=== PATIENT | female | born 1960 | race Caucasian/White ===

== ENCOUNTER 2016-06-29 10:45 | Day surgery (SDC) | payer OTHER ==
[~2016-06-29] VITALS: Ht 177.8 cm; Wt 103.0 kg
[~2016-06-29 10:45] MED LIST: ACET-97 PO; CETI10CA PO; CITA40TA13 PO; FENO160T14 PO; IBUP-1827 PO; LEVO75TA4 PO; Lactated Ringer's 1,000 ML IV ONE; OMEP40CA36 PO
[2016-06-29] MEDS ORDERED: Propofol 10,000 mCg/mL 20 mL Inj ONE (10:46)
[2016-06-29] MEDS ORDERED: fentaNYL-PF 50 mCg/mL 2 mL Inj ONE (10:46)
[2016-06-29 12:23] VITALS: BP 100/57; PULSE 69; O2SAT 100
--- NOTE | 2016-06-29 12:38 | PCM.HPANE ---
Patient Data Surgeon Admitting Provider: Attending Provider:Luiz Griffin MD Primary Care Physician:Leana Pollard DO Other Provider:Rickey Yousif Anesthesia Reason for Visit Dysphagia Ht/WT & BMI Body Mass Index Allergies Coded Allergies: morphine (Verified Adverse Reaction, Severe, NAUSEA,DIZZINESS,CONFUSION, ) Past Anesthesia History Anesthesia History: Denies:: Abnormal Airway, Anesthesia Reactions, Difficult Intubation, Fam Anesthesia Reaction, Fam Malignant Hypertherm, Malignant Hyperthermia Diabetes History Hx Diabetes?: No MRSA MRSA: No Medications Reported Medications Omeprazole 40 Mg Capsule.dr40 Mg PO BID 30 Days Ref 0 10/01/14 Levothyroxine 75 Mcg Ihwwvg22 Mcg PO DAILY 30 Days Ref 0 10/01/14 Ibuprofen 600 Mg [id number] Mg PO QID PRN For Pain Ref 0 10/01/14 Cetirizine HCl (Zyrtec)10 Mg Kvypojb55 Mg PO HS #30 CAPSULE Ref 0 10/01/14 Fenofibrate 160 Mg [id number] Mg PO DAILY 30 Days Ref 0 10/01/14 Discontinued Reported Medications Citalopram 40 Mg Lkbbrm50 Mg PO DAILY 30 Days Ref 0 10/01/14 Acetaminophen 500 Mg [id number] Mg PO PRN PRN For Pain 10/01/14 History History of ENT Problems?: Yes HEENT History: Positive for:: Sinus Problem (ENVIRONMENTAL ALLERGIES) Denies:: Abnormal Airway Difficult Intubation Dysphagia Hearing Problem Hx of Heart Problems?: No Cardiovascular History: Denies:: AICD Atrial Fibrillation Chest Pain Hypertension Pacemaker Valvular Heart Disease Hx of Respiratory Problem?: No Respiratory History: Positive for:: Use of C-PAP Machine (DAGO+ ??CPAP) Denies:: Asthma COPD Cough Hemoptysis Pneumonia Tuberculosis Hx Neurologic Problems?: Yes Neurological History: Positive for:: Headaches Denies:: CVA Hx of GI Problems?: Yes Gastrointestinal History: Positive for:: Gastroesphageal Reflux (takes omeprazole daily (40mg)) Denies:: Cirrhosis Diverticulitis Hiatal Hernia Rectal Bleeding Hx of Problems?: No Female Hx: Denies:: Currently Skin History: Denies:: History Skin Disorders? Pressure Ulcers Hx Musculoskeletal Problems?: Yes Musculoskeletal History: Positive for:: Musculoskeletal Trauma (S/P LT SHOULDER LABRUM RPR) Denies:: Joint Replacement Hx of Psycho/Social Problems?: Yes Psycho Social History: Positive for:: Anxiety Hx Depression Hx Surgeries?: Yes (hyst 07; l shoulder 09; cervix 09; neck 04/13. ) Hx Any Other Health Problems?: Yes Other History: Positive for:: Thyroid Disease Denies:: Cancer Endocrine Disease Hospitalization History Blood Transfusions: Denies:: Blood Transfusions Hx Diabetes: No Hx Alcohol Use: NoHx Substance Use: No Smoking Status: Never Smoker Have You Smoked inLast 12 mo: No Stop/Bang Risk Assessment Category Category 1A: Patient has history of documented sleep apnea, and HAS NOT received any narcotic, sedative or anesthesia administration during this stay. Category 1B: Patient has history of documented sleep apnea, and HAS received any narcotic , sedative or anesthesia administration during this stay Category 2: Patient has SUSPECTED Obstructive Sleep Apnea, and HAS received any narcotic , sedative or anesthesia administration during this stay. Category 3: Patient has SUSPECTED Obstructive Sleep Apnea and HAS NOT received narcotic, sedative or anesthesia administration during this stay. Category 4: Outpatient in Procedural Areas with known sleep apnea or who screen positive for High Risk via the STOP/BANG questionnaire. Exam Exam General Appearance: Alert, Oriented X3, Cooperative, No Acute Distress HEENT/AIRWAY: MP 2 Lungs: Clear to Auscultation Heart: Exam Unremarkable Plan Impression Patient chart reviewed, patient interviewed and anesthestic plan with risks, benefits, and alternatives discussed, and informed consent obtained. NPO Status: 730pm ASA Physical Status: ASA2 Mod Systemic Disease Anesthetic Plan: MAC Bene/Risks/Altern/Consents: Yes HP Complete Prior to Induction: Yes Otilio Arce MD Jun 29, 2016 08:12
--- NOTE | 2016-06-29 12:54 | PCM.ANEP2 ---
Post Anesthesia Evaluation ASA/CMS Post Anesthesia VS in Patient's Normal Range?: Yes Resp Stable; Airway Patent?: Yes CV Function & Hydration Stable: Yes Mental Status Recovered?: Yes Pain control Satisfactory?: Yes N/V Control Satisfactory?: Yes Otilio Arce MD Jun 29, 2016 12:54
[2016-06-29 12:58] VITALS: BP 108/67; PULSE 58; RESP 16; O2SAT 98
[2016-06-29 13:07] VITALS: BP 104/69; PULSE 55; RESP 16; O2SAT 100
--- NOTE | 2016-06-29 13:10 | ENDO ---
[address] [address] ENDOSCOPY PROCEDURE PATIENT: MARLEN MILLER : 1960 MR#: [id number] ADMIT: 06/29/2016 JOB ID: [id number] DATE: 06/29/2016 TYPE OF OPERATION: Esophagogastroduodenoscopy with biopsy and esophageal dilatation. PREOPERATIVE DIAGNOSIS(ES): Dysphagia. POSTOPERATIVE DIAGNOSIS(ES): Normal upper endoscopy, status post biopsy. Esophageal serial dilatation from 18-20 mm with good mucosal tear. ANESTHESIA: Monitored anesthesia care. COMPLICATIONS: None. BLOOD LOSS: Minimal. DESCRIPTION OF PROCEDURE: After risks and benefits were explained to the patient, informed consent was obtained. After anesthesia administered, an upper endoscope was inserted into mouth intubating the esophagus, stomach, second portion of duodenum. Mucosa carefully examined. After procedure was done, the scope withdrawn and procedure terminated. FINDINGS: Upon inspection of the esophagus, the esophagus is normal without masses, ulcers, or lesions. Z-line located at 40 cm from the incisors. Upon entering the stomach, the stomach was also normal without masses, ulcers, lesions. Retroflexion normal. Duodenal bulb, first and second portion normal. Biopsies taken of mid and distal esophagus. A #6 CRE TTS balloon dilatation performed from 18-20, good mucosa tear in distal esophagus. IMPRESSIONS: Normal upper endoscopy, status post biopsy and CRE TTS balloon dilatation performed from 18-20 mm. Good mucosal tear. RECOMMENDATION: 1. Wait for pathology results. 2. Followup in GI clinic as needed.
[2016-06-29 13:17] VITALS: BP 93/69; PULSE 56; RESP 16; O2SAT 97
[2016-06-29 13:23] VITALS: BP 108/80; PULSE 65; RESP 16; O2SAT 99
--- NOTE | 2016-07-01 13:28 | PATH ---
SURGICAL PATHOLOGY Attending Physician:Luiz Griffin MD CASE STATUS: Signed Out PATIENT NAME: MARLEN MILLER PID: [id number] : 1960 DATE COLLECTED:06/29/2016 22:25 SPECIMEN: 1: Esophagus, Biopsy 2: Esophagus, Biopsy CLINICAL HISTORY: 1). DISTAL ESOPHAGUS BIOPSY 2). MID ESOPHAGEAL BIOPSY FINAL DIAGNOSIS: 1.DISTAL ESOPHAGUS, BIOPSY: SQUAMOCOLUMNAR JUNCTIONAL MUCOSA WITH NO DIAGNOSTIC ABNORMALITY. Negative for intestinal metaplasia. Negative for dysplasia and malignancy. 2.MID ESOPHAGUS, BIOPSY: SQUAMOUS EPITHELIUM WITH NO DIAGNOSTIC ABNORMALITY. Intraepithelial eosinophils are not increased. Negative for dysplasia and malignancy. ICD10 code R10.13 GROSS DESCRIPTION: The specimen is received in two formalin filled containers labeled with the patient's name. 1). The specimen is sublabeled "distal esophagus" and consists of a 0.1 x 0.1 x 0.1 CM portion of tissue which is entirely submitted in cassette 1A. 2). The specimen is sublabeled "midesophagus" and consists of 2 portions of tissue which aggregate to 0.3 x 0.2 x 0.2 CM. The specimen is entirely submitted in cassette 2A. 06/30/2016 DAC MICRO DESCRIPTION: See diagnosis. ICD-9 CODES: CPT CODES: 1: 04835 2: 08441 Electronically Signed Out Livier Almazan MD [facility] Pathology [facility] [address], [place] [address] Technical component performed at [facility], [facility] [address], [place], [address]
== END 2016-06-29 23:59 | disposition home or self-care (01) ==
LOC: END 10:45
PROVIDERS: ATTEND Internal Medicine Gastroenterology
DX: R13.10 Dysphagia, unspecified (principal); K21.9 Gastro-esophageal reflux disease without esophagitis; K76.0 Fatty (change of) liver, not elsewhere classified; G47.33 Obstructive sleep apnea (adult) (pediatric); M19.90 Unspecified osteoarthritis, unspecified site; E78.00 Pure hypercholesterolemia, unspecified; E66.01 Morbid (severe) obesity due to excess calories; F41.9 Anxiety disorder, unspecified; F32.9 Major depressive disorder, single episode, unspecified; Z68.33 Body mass index [BMI] 33.0-33.9, adult
CPT/HCPCS: 43239; 43249; 88305; J3010; J7120